=== PATIENT | male | born 1980 | race Caucasian/White ===

== ENCOUNTER → 2017-07-19 | Day surgery (SDC) | payer OTHER ==
[~2017-07-19] VITALS: Ht 175.3 cm; Wt 83.9 kg
[~2017-07-19] MED LIST: FAMOTIDINE 20MG/2ML IV (PEPCID) IVP ONE; FAMOTIDINE 20MG/2ML IV (PEPCID) ONE; LACTATED RINGERS 1,000 ML IV PRN; MIDAZOLAM 2 MG/2 ML (VERSED) VIAL ONE; NS IV 500 ML 500 ML IV PRN; NS IV 500 ML 500 ML ONE; PANT40TA2 PO; SEVOFLURANE (ULTANE) 15 ML INHAL SOLN ONE; SUCCINYLCHOLINE INJ 100 MG/5 ML SYR ONE; SUCR1TAB36 PO; proPOfol 200 MG/20 ML (DIPRIVAN) VIAL IV ONE
--- NOTE | 2017-07-19 00:54 | ED GI ---
General Chief Complaint: Foreign Body Stated Complaint: PT STATES FEELS LIKE F O AT STERNUM Nursing Triage Note: Patient reports eating steak around 2100 on 07/18 and since has felt like something is stuck behind sternum and is unable to get anything down Sepsis Screen: No Definite Risk Source of Information: Patient Exam Limitations: No Limitations History of Present Illness Time Seen By Provider: 00:15 Initial Comments PT ARRIVES VIA POV, DROVE SELF HERE--IS HERE VISITING FAMILY PT STATES HE WAS EATING STEAK TONIGHT AROUND 2100, AND FEELS LIKE SOMETHING IS STUCK IN HIS ESOPHAGUS, MID STERNUM PT CANNOT SWALLOW WATER, IT COMES RIGHT BACK UP PT HAS HAD MILDER, SIMILAR EPISODES, BUT FOOD HAS ALWAYS WENT ON DOWN AFTER 10- 15 MINUTES--HAS NEVER HAD ANYTHING THIS BAD HAS HAD SOME ACID REFLUX SYMPTOMS OFF AND ON---WOULD TAKE PRILOSEC FOR A MONTH OR TWO AND THEN HE WOULD NOT HAVE ANY PROBLEMS FOR SEVERAL MONTHS NO DIFFICULTY BREATHING WAS UNABLE TO SLEEP TONIGHT DUE TO THIS PROBLEM Allergies and Home Medications Allergies Coded Allergies: No Known Drug Allergies (Unverified , 07/19/17) Review of Systems Constitutional: no symptoms reported Respiratory: No Symptoms Reported Cardiovascular: No Symptoms Reported Gastrointestinal: See HPI Genitourinary: No Symptoms Reported Musculoskeletal: no symptoms reported Skin: no symptoms reported Psychiatric/Neurological: No Symptoms Reported Endocrine: No Symptoms Reported Hematologic/Lymphatic: No Symptoms Reported Past Esjgiew-Rvpows-Cgvkqc Hx Patient Social History Alcohol Use: Denies Use Recreational Drug Use: No Smoking Status: Never a Smoker Recent Foreign Travel: No Contact w/Someone Who Travel: No Recent Infectious Disease Expo: No Physical Abuse: No Sexual Abuse: No Surgeries History of Surgeries: Yes (RIGHT ACL REPAIR; FINGER SURGERY) Surgeries: Orthopedic Respiratory History of Respiratory Disorde: No Cardiovascular History of Cardiac Disorders: No Neurological History of Neurological Disord: No Genitourinary History of Genitourinary Disor: No Gastrointestinal History of Gastrointestinal Di: No Musculoskeletal History of Musculoskeletal Dis: Yes (RIGHT ACL REPAIR, FINGER SURGERY) Endocrine History of Endocrine Disorders: No HEENT History of HEENT Disorders: No Cancer History of Cancer: No Psychosocial History of Psychiatric Problem: No Suicide Risk Score: 0 Integumentary History of Skin or Integumenta: No Blood Transfusions History of Blood Disorders: No Physical Exam Vital Signs VS - Last 72 Hours, by Label 07/19/17 00:19 Temp 98.2 Pulse 84 Resp 18 B/P (MAP) 140/97 Pulse Ox 98 Capillary Refill : Less Than 3 Seconds General Appearance: WD/WN, no apparent distress HEENT: pharynx normal Neck: normal inspection Respiratory: normal breath sounds, no respiratory distress, no accessory muscle use Cardiovascular: regular rate, rhythm, no murmur Gastrointestinal: normal bowel sounds, non tender, soft, no organomegaly Extremities: normal inspection Back: normal inspection Neurologic/Psychiatric: food beverage supervisor II-XII nml as tested, no motor/sensory deficits, alert, normal mood/affect, oriented x 3 Skin: normal color, warm/dry Progress/Results/Core Measures Results/Orders My Orders Orders - MAREK ADAN DO Chest Pa/Lat (2 View) (07/19/17 00:23) Saline Lock/Iv-Start (07/19/17 00:46) Vital Signs/I&O Vital Sign - Last 12Hours 07/19/17 00:19 Temp 98.2 Pulse 84 Resp 18 B/P (MAP) 140/97 Pulse Ox 98 Blood Pressure Mean: 111 Progress Note : Progress Note PT UNABLE TO KEEP SIPS OF WATER DOWN Diagnostic Imaging Comments CXR--AIR-FLUID LEVEL NOTED IN ESOPHAGUS, PENDING RADIOLOGIST REVIEW Reviewed: Reviewed by Me Departure Communication (Admissions) Progress Notes 0040--SPOKE WITH DR. MAYNARD, HE ADVISED TO CALL IN GI LAB AND ANESTHESIA. HE WILL BE IN TO SEE PT 0100--DR. MAYNARD HERE, CARE TURNED OVER TO HIM Impression Impression: Primary Impression: Esophageal obstruction due to food impaction Disposition: ADMITTED INPATIENT (TO GI LAB) Condition: Stable Departure-Patient Inst. Referrals: NO,LOCAL PHYSICIAN (PCP/Family) Primary Care Physician MAREK ADAN DO Jul 19, 2017 00:54
--- NOTE | 2017-07-19 01:20 | History & Physical-Surgical ---
History of Present Illness History of Present Illness Reason for visit/HPI Seen and evaluated in ER. CC: Food stuck esophagus. 36 year old male who was eating steak around 9 pm last night. felt as it was stuck middle of esophagus. Can't drink any liquids without throwing them up due to some thing being stuck. Has had reflux symptoms on and off for several years but never had anything really get stuck. Usually it would pass after approximately 10 min. Has taken prilosec on occasions and reflux would improve. Having some nausea and emesis. Denies any fever sweats chills shortness of breath or chest pain. Date of Admission Date Seen by Provider: Jul 19, 2017 Time Seen by Provider: 01:22 I consulted on this patient on 07/19/17 01:14 Attending Physician Ciara Alexander DO Admitting Physician No,Local Physician Consult Allergies and Home Medications Allergies Coded Allergies: No Known Drug Allergies (Unverified , 07/19/17) Past Vvsppfx-Bhiroe-Mdfnea Hx Patient Social History Alcohol Use: Rarely Uses Recreational Drug Use: No Smoking Status: Never a Smoker Recent Foreign Travel: No Contact w/Someone Who Travel: No Recent Infectious Disease Expo: No Surgeries History of Surgeries: Yes (RIGHT ACL REPAIR; FINGER SURGERY) Surgeries: Orthopedic Respiratory History of Respiratory Disorde: No Cardiovascular History of Cardiac Disorders: No Neurological History of Neurological Disord: No Genitourinary History of Genitourinary Disor: No Gastrointestinal History of Gastrointestinal Di: No Musculoskeletal History of Musculoskeletal Dis: Yes (RIGHT ACL REPAIR, FINGER SURGERY) Endocrine History of Endocrine Disorders: No HEENT History of HEENT Disorders: No Cancer History of Cancer: No Psychosocial History of Psychiatric Problem: No Integumentary History of Skin or Integumenta: No Blood Transfusions History of Blood Disorders: No Family Medical History Significant Family History: No Pertinent Family Hx Constitutional: see HPI EENTM: no symptoms reported Respiratory: no symptoms reported Cardiovascular: no symptoms reported Gastrointestinal: see HPI, No abdominal pain, dysphagia, nausea, vomiting Genitourinary: no symptoms reported Musculoskeletal: no symptoms reported Skin: no symptoms reported Psychiatric/Neurological: No Symptoms Reported Physical Exam Vital Signs Vital Sign - Last 12Hours 07/19/17 00:19 Temp 98.2 Pulse 84 Resp 18 B/P (MAP) 140/97 Pulse Ox 98 Capillary Refill : Less Than 3 Seconds General Appearance: No Apparent Distress HEENT: PERRL/EOMI, Normal ENT Inspection Neck: Normal Inspection, Non Tender, Supple Respiratory: No Accessory Muscle Use, No Respiratory Distress Cardiovascular: Regular Rate, Rhythm Gastrointestinal: No Organomegaly, Non Tender, Soft Rectal: Deferred Back: Normal Inspection Extremity: Normal Range of Motion, Non Tender Neurologic/Psychiatric: Alert, Oriented x3 Skin: Warm/Dry Lymphatic: No Adenopathy Assessment/Plan Assessment/Plan Assessment/Plan esophageal obstruction secondary to food impaction chest x ray demonstrating esophageal fluid level explained risks and benefits of egd and removal of food impaction causing obstruction which he understands. patient explained will likely need repeat egd in approximately 6 weeks to reevaluate. To endoscopy for EGD. CIARA ALEXANDER DO Jul 19, 2017 01:20
--- NOTE | 2017-07-19 03:05 | Progress Note-Post Operative ---
Post-Operative Progess Note Surgeon (s)/Environmental Service Aide (s) Surgeon CIARA MAYNARD DO Environmental Service Aide: na Pre-Operative Diagnosis esophageal obstruction Post-Operative Diagnosis same secondary to food bolus Procedure & Operative Findings Date of Procedure 07/19/17 Procedure Performed/Findings esophagogastroscopy with removal of food bolus Anesthesia Type general Estimated Blood Loss Estimated blood loss (mL): none Specimens/Packing Specimens Removed na CIARA MAYNARD DO Jul 19, 2017 3:05 am
--- NOTE | 2017-07-19 03:10 | Discharge Inst-Simple/Standard ---
Discharge Inst-Standard Discharge Medications New, Converted or Re-Newed RX: RX on Chart Patient Instructions/Follow Up Plan of Care/Instructions/FU: Follow up in two weeks with Dr. Alexander or your Primary care physician for referral to GI where you live. Would recommend repeat EGD in about 6 weeks to reevaluate. Stay on liquid diet for 3 days then slowly increase diet as tolerates choosing foods that are easy to mechanically break down. Activity as Tolerated: Yes Discharge Diet: Liquid Diet CIARA ALEXANDER DO Jul 19, 2017 3:10 am
[2017-07-19 03:59] VITALS: BP 116/98
--- NOTE | 2017-07-19 06:33 | OPERATIVE REPORT ---
DATE OF SERVICE: 07/19/2017 PREOPERATIVE DIAGNOSIS: Esophageal obstruction. POSTOPERATIVE DIAGNOSIS: Esophageal obstruction, secondary to food bolus. PROCEDURE: Esophagogastroscopy with removal of food bolus. SURGEON: Ciara Alexander DO. ANESTHESIA: General. ESTIMATED BLOOD LOSS: None. COMPLICATIONS: None. SPECIMEN: None. INDICATIONS FOR PROCEDURE: The patient is a 36-year-old male who was eating steak last night around 9 o'clock. He felt as if it stuck in his esophagus. The patient was vomiting any liquids that he would drink. He understands the risks and benefits of procedure and wished to proceed with procedure. Consent was signed in the chart. DESCRIPTION OF PROCEDURE: The patient was taken to the endoscopy suite. General anesthetic and endotracheal intubation was performed. Timeout was performed. Scope was inserted into the mouth down the esophagus. There was a lot of fluid present proximally. This was continued to be suctioned. A large piece of meat was in the distal portion of the esophagus. Prong forceps was used to try to attempt to grasp it, but was unsuccessful. A mesh basket was also inserted and was able to break up into some small pieces, but unable to relieve the entire amount. Biopsy forceps was used to try to break up the meat also to try to withdraw without any success. The basket was then placed back in and several large chunks of the meat were able to be removed and the remainder of the meat was able to pass through the distal esophagus into the stomach. There was some slight narrowing, appears to be secondary to inflammation present. Scope was inserted into the stomach and further insufflated. A large amount of food is within the stomach. Therefore, the scope was not passed to the duodenum. The scope was retroflexed, noting appearance of possibly a small hiatal hernia. Scope was returned to its normal position, slowly withdrawn. All food particulate was removed from the esophagus. The scope was slowly retracted until completely removed. The patient tolerated the procedure well without any complications and was taken to the recovery room in stable condition. RECOMMENDATIONS: The patient would be recommended repeating EGD in approximately 6 weeks for reevaluation. Possible dilatation. We will start him on Carafate 1 gram 4 times a day and also Protonix 40 mg daily. Recommend staying on a liquid diet for 3 days and then slowly advance and to choose foods that are easy to mechanically break up. Job ID: [id number] DocumentID: [id number] Dictated Date: 07/19/2017 03:17:25 Sample Card Maker Date: 07/19/2017 04:49:50 Dictated By: CIARA ALEXANDER DO
--- NOTE | 2017-07-19 07:48 | Diagnostic Imaging Report ---
INDICATION: Feels like something stuck in the throat. COMPARISON: None FINDINGS: Two views of the chest were obtained. Heart size is normal. The pulmonary vessels appear unremarkable. There is no pneumothorax, mediastinal widening or pleural fluid demonstrated. The lungs are clear. The osseous structures appear unremarkable. IMPRESSION: No acute abnormality is demonstrated. Dictated by: Dictated on workstation # [id number]
== END | disposition home or self-care (01) ==
LOC: EDUNIT# 00:08 → ER 00:14 → SDC 00:57
PROVIDERS: ATTEND Surgery
DX: K22.2 Esophageal obstruction (principal)
CPT/HCPCS: 71020